=== PATIENT | female | born 1935 | race Caucasian/White ===

== ENCOUNTER 2016-05-28 19:04 | Inpatient (IN) | payer MEDICARE, OTHER ==
[~2016-05-28] VITALS: Ht 165.1 cm; Wt 51.3 kg
[~2016-05-28 19:04] MED LIST: ASPIR-LOW81 MG PO; ASPIRIN E.C. 8181 MG PO; ATENOLOL; DIAZEPAM PO; EVISTA; IMDUR 30MG30 MG/TAB PO; IMDUR120 MG PO; ISOSORBIDE; LEVAQUIN 5500 MG/TA1 PO; LEVOTHYROXINE PO; LISINOPRIL2.5 MG PO; METAMUCIL1 PDR PO; MULTIPLE VITAMI1 CAP PO; NORCO 325 MG-51 TAB PO; OMNICEF 300MG300 MG PO; PRILOSEC 20MG20 MG PO; PRINIVIL5 MG PO; PYRIDIUM 100MG100 MG PO; TENORMIN 2525 MG/TAB PO; TERAZOSIN; TIROSINT75 MCG PO; TYLENOL 325MG325 MG PO; VALIUM 10MG10 MG/TAB PO; VALIUM 5MG T5 MG/TAB PO; [UNRECOGNIZED DRUG - OTHER] PO; evista PO
[2016-05-28 19:29] LABS: BASO # 0.1 (0.0-0.2); BASO % 0.5 % (0.0-2.0); EOS % 0.4 % (0-4.0); GRAN # 6.5 (1.4-6.5); GRAN % 69.2 % (42.2-75.2); HEMOGLOBIN 12.6 g/dl (12.5-16.0); LYMPH # 1.9 (1.2-3.4); LYMPH % 20.1 % (20.0-51.0); MEAN CELL VOLUME 85 fl (80.0-100.0); MEAN CORPUSCULAR HEMOGLOBIN 30 pg (27.0-31.0); MEAN CORPUSCULAR HGB CONC 36 g/dl (33.0-37.0); MEAN PLATELET VOLUME 8.9 fl (7.4-10.4); MONO # 0.9 (0.1-0.6); MONO % 9.5 % (1.7-9.3); PLATELET COUNT 276 K/mm3 (130-400); RED BLOOD COUNT 4.14 M/mm3 (4.10-5.30); REDCELL DISTRIBUTION WIDTH-CV 12.4 % (11.5-14.5); WHITE BLOOD COUNT 9.3 K/mm3 (4.8-10.8)
[2016-05-28 19:38] LABS: HEMATOCRIT 35.1 % (37.0-47.0)
[2016-05-28 20:28] LABS: PH 8 (5-8); SQUAMOUS EPITHELIAL None Seen /hpf; URINE APPEARANCE Clear; URINE BACTERIA Rare /hpf; URINE BILIRUBIN Negative (NEGATIVE); URINE BLOOD 1+ (NEGATIVE); URINE COLOR Straw; URINE GLUCOSE 1+ (NEGATIVE); URINE KETONE Negative (NEGATIVE); URINE UROBILINOGEN Negative (NEGATIVE); URINE WBC 0-2 /hpf
[2016-05-28 20:28] LABS: ADJUSTED CALCIUM 8.8 mg/dL (8.4-10.2); ALBUMIN 4.6 gm/dL (3.5-5.0); CALCIUM 9.3 mg/dL (8.4-10.2); CREATININE, serum 0.61 mg/dL (0.52-1.25); POTASSIUM 4.3 mmol/L (3.4-5.0); TOTAL PROTEIN 8.1 gm/dL (6.4-8.2)
[2016-05-29] VITALS (552 sets, daily range): BP systolic 127–168; BP diastolic 55–88; PULSE 52–87; TEMP 97.6–98.7; O2SAT 95–100
[2016-05-29 07:56] LABS: CALCIUM 8.9 mg/dL (8.4-10.2); CREATININE, serum 0.61 mg/dL (0.52-1.25); POTASSIUM 3.7 mmol/L (3.4-5.0)
[2016-05-29] MEDS ORDERED: PRINIVIL10 MG PO (10:20)
[2016-05-29] MEDS ORDERED: CELEBREX 200MG200 MG PO (10:22)
[2016-05-29] MEDS ORDERED: SYNTHROID0.05 MG/TA PO (10:27)
[2016-05-29] MEDS ORDERED: TIROSINT75 MC1 PO (10:29)
[2016-05-29 11:45] LABS: THYROID STIMULATING HORMONE 3.27 uIU/mL (0.465-4.680)
[2016-05-30] VITALS (474 sets, daily range): BP systolic 119–150; BP diastolic 62–83; PULSE 59–66; TEMP 97.2–98.3; O2SAT 96–100
[2016-05-30 05:39] LABS: CALCIUM 8.6 mg/dL (8.4-10.2); CREATININE, serum 0.7 mg/dL (0.52-1.25); POTASSIUM 3.6 mmol/L (3.4-5.0)
[2016-05-31] VITALS (9 sets, daily range): BP systolic 131–177; BP diastolic 57–84; PULSE 58–87; TEMP 97–98
[2016-06-01 02:51] VITALS: BP 173/93; PULSE 64; TEMP 97.6
[2016-06-01 07:30] VITALS: BP 163/78; PULSE 65; TEMP 97.8
[2016-06-01 11:20] VITALS: BP 159/75; PULSE 67; TEMP 97.9
[2016-06-01 15:59] VITALS: BP 160/70; PULSE 79; TEMP 97.7
[2016-06-01 20:53] VITALS: BP 133/98; PULSE 67; TEMP 98.3
[2016-06-01 23:57] VITALS: BP 135/71; PULSE 68; TEMP 98.5
[2016-06-02] VITALS (7 sets, daily range): BP systolic 139–175; BP diastolic 58–99; PULSE 63–83; TEMP 97.3–98.5
[2016-06-02 07:32] LABS: CALCIUM 8.5 mg/dL (8.4-10.2); CREATININE, serum 0.69 mg/dL (0.52-1.25)
[2016-06-03 02:33] VITALS: BP 160/80; PULSE 70; TEMP 98.7
[2016-06-03 07:30] VITALS: BP 153/86; PULSE 77; TEMP 98.4
[2016-06-03 08:02] VITALS: BP 145/72; PULSE 64; TEMP 98.2
[2016-06-03 08:03] LABS: CALCIUM 8.8 mg/dL (8.4-10.2); CREATININE, serum 0.76 mg/dL (0.52-1.25)
[2016-06-03] MEDS ORDERED: METAMUCIL3.4 GM/DOS PO (10:28)
[2016-06-03] MEDS ORDERED: LASIX 20MG TABL20 MG PO (10:28)
[2016-06-03] MEDS ORDERED: DULCOLAX S10 MG/SUPP RC (10:29)
[2016-06-03] MEDS ORDERED: LIQUIFILM TEARS15 ML OP (10:29)
[2016-06-03 10:45] VITALS: BP 145/72; PULSE 64; TEMP 98.2
[2016-06-03 11:04] VITALS: BP 157/86; PULSE 73; TEMP 98.4
== END 2016-06-03 12:22 | DRG 641 ==
LOC: COL.ER 19:04 → ICU 21:25 → MEDICAL 21:25 → ICU 21:25 → IMCU 05-29 15:03 → MEDICAL 05-30 18:00
PROVIDERS: Emergency Medicine
PROC: 02HV33Z Insertion of Infusion Device into Superior Vena Cava, Percutaneous Approach (ICD-10-PCS; principal; 2016-05-29)
DX: E87.1 Hypo-osmolality and hyponatremia (principal); E46 Unspecified protein-calorie malnutrition; Z68.1 Body mass index [BMI] 19.9 or less, adult; I10 Essential (primary) hypertension; E03.9 Hypothyroidism, unspecified; F20.9 Schizophrenia, unspecified
CPT/HCPCS: C1751; C1894; J1644; J7030

== ENCOUNTER → 2016-08-20 | Outpatient (CLI) | payer MEDICARE, OTHER ==
[~2016-08-20] MED LIST changes: +CELEBREX 200MG200 MG PO; +DULCOLAX S10 MG/SUPP RC; +LASIX 20MG TABL20 MG PO; +LIQUIFILM TEARS15 ML OP; +METAMUCIL3.4 GM/DOS PO; +PRINIVIL10 MG PO; +SYNTHROID0.05 MG/TA PO; +TIROSINT75 MC1 PO
== END ==
LOC: MC.RAD 13:45
DX: Z12.31 Encounter for screening mammogram for malignant neoplasm of breast (principal)

== ENCOUNTER → 2017-12-06 | Outpatient (CLI) | payer MEDICARE, OTHER | LOC: MC.RAD 09:58 | DX: Z12.31 Encounter for screening mammogram for malignant neoplasm of breast (principal) ==

== ENCOUNTER 2019-01-14 20:11 | Inpatient (IN) | payer MEDICARE, OTHER ==
[~2019-01-14] VITALS: Ht 154.9 cm; Wt 51.0 kg
[2019-01-14 20:34] LABS: HEMOGLOBIN 11.9 g/dl (12.5-16.0); MEAN CELL VOLUME 82 fl (80.0-100.0); MEAN CORPUSCULAR HEMOGLOBIN 30 pg (27.0-31.0); MEAN CORPUSCULAR HGB CONC 37 g/dl (33.0-37.0); MEAN PLATELET VOLUME 9.5 fl (7.4-10.4); PLATELET COUNT 162 K/mm3 (130-400); RED BLOOD COUNT 3.99 M/mm3 (4.10-5.30); REDCELL DISTRIBUTION WIDTH-CV 15.6 % (11.5-14.5)
[2019-01-14 20:35] LABS: HEMATOCRIT 32.6 % (37.0-47.0)
[2019-01-14 20:42] LABS: ALBUMIN 3.5 gm/dL (3.5-5.0); BILIRUBIN,TOTAL 1.3 mg/dL (0.0-1.0); CALCIUM 9.2 mg/dL (8.4-10.2); CREATININE, serum 2.18 (0.52-1.25); POTASSIUM 4.2 mmol/L (3.4-5.0); TOTAL PROTEIN 7.1 gm/dL (6.4-8.2)
[2019-01-14 20:43] LABS: INR 1.2 (0.8-3.0); PROTHROMBIN TIME 13.8 SECONDS (9.7-12.8)
[2019-01-14 20:53] LABS: TROPONIN-I 0.026 ng/mL (0.000-0.035)
[2019-01-14 21:41] LABS: BAND 6 % (0-10); LYMPHOCYTE 2 % (20.0-51.0); MICROCYTOSIS 2+; NEUTROPHILS 89 % (42.0-75.2); TARGET CELLS 1+
[2019-01-14 21:44] LABS: PLATELET ESTIMATE NORMAL (NORMAL)
[2019-01-14 22:41] LABS: COLLECTION METHOD CLEAN CATCH
[2019-01-14 22:46] LABS: PH 6 (5-8); SQUAMOUS EPITHELIAL None Seen /hpf; URINE APPEARANCE Clear; URINE BACTERIA None Seen /hpf; URINE BILIRUBIN Negative (NEGATIVE); URINE BLOOD 1+ (NEGATIVE); URINE COLOR Yellow; URINE GLUCOSE Negative (NEGATIVE); URINE KETONE Negative (NEGATIVE); URINE LEUKOCYTE ESTERASE Negative (NEGATIVE); URINE NITRATE Negative (NEGATIVE); URINE PROTEIN(semi-quant) Negative (NEGATIVE); URINE RBC None Seen /hpf; URINE UROBILINOGEN Negative (NEGATIVE)
[2019-01-14] MEDS ORDERED: TENORMIN 5050 MG/TAB PO (22:58)
[2019-01-14] MEDS ORDERED: LASIX 20MG TABL20 MG PO (23:01)
[2019-01-14] MEDS ORDERED: LASIX 40MG TABL40 MG PO (23:03)
[2019-01-14] MEDS ORDERED: CELEBREX 200MG200 MG PO (23:07)
[2019-01-14] MEDS ORDERED: DORYX100 PO (23:08)
[2019-01-14] MEDS ORDERED: IMODIUM A-D2 MG PO (23:09)
[2019-01-14] MEDS ORDERED: MUCINEX 60600 MG/TA1 PO (23:10)
[2019-01-14] MEDS ORDERED: GOOD NEIGH1200 MG/15 PO (23:10)
[2019-01-14] MEDS ORDERED: MYLANTA 150 ML150 M1 (23:11)
[2019-01-14] MEDS ORDERED: NIACINAMIDE500 MG PO (23:12)
[2019-01-14] MEDS ORDERED: PRILOTC PO (23:12)
[2019-01-14] MEDS ORDERED: TYLENOL 325MG325 MG PO (23:13)
[2019-01-14] MEDS ORDERED: VALIUM 5MG T5 MG/TAB PO ×2 (23:14→23:15)
[2019-01-14] MEDS ORDERED: ZYRTEC 10MG10 MG PO (23:16)
[2019-01-14] MEDS ORDERED: VALIUM 2MG T2 MG/TAB PO (23:18)
[2019-01-14 23:43] VITALS: BP 188/71; PULSE 61; TEMP 97.5
--- NOTE | 2019-01-15 00:10 | NUR ---
Admitted to medical floor from ER , Dx;pancreatitis, Tele on, NPO, pt is alert/oriented, pleasant, slightly slurred speech abd talks quietly but able to understand, lives at assisted living in [facility]- IV fluids at 250cc/hr- Has Evans {was placed in ER} to DD with clear yellow urine- denies pain, denies N/V- bed alarm on -understands to call for assistance.
[2019-01-15] MEDS ORDERED: PRILOSEC 20MG20 MG PO (01:09)
[2019-01-15] MEDS ORDERED: VALIUM 5MG T5 MG/TAB PO (01:16)
[2019-01-15 01:55] VITALS: BP 190/73; PULSE 66
--- NOTE | 2019-01-15 02:00 | NUR ---
Dr Tapia called regarding B/P 190/73, and IV fluids at 250cc/hr-- order to decrease fluids to 75cc/hr , and give Tenormin 50mg and Lisinopril 5mg at this time- also order for GI consult to be called this morning. IV site to left wrist very positional-dc,d- new site started to right wrist 22g
[2019-01-15 07:08] VITALS: BP 199/85; PULSE 62; TEMP 97.8
--- NOTE | 2019-01-15 07:21 | NUR ---
Received report from LEFTY Cloud.
--- NOTE | 2019-01-15 09:52 | NUR ---
Pt sleeping upon entry, easily awakened, no C/O pain at this time, shift assessments complete, left Pt call light in reach, bed in lowest position.
[2019-01-15 10:02] LABS: HEMOGLOBIN 10.1 g/dl (12.5-16.0); MEAN CELL VOLUME 81 fl (80.0-100.0); MEAN CORPUSCULAR HEMOGLOBIN 30 pg (27.0-31.0); MEAN CORPUSCULAR HGB CONC 37 g/dl (33.0-37.0); MEAN PLATELET VOLUME 9.2 fl (7.4-10.4); PLATELET COUNT 240 K/mm3 (130-400); RED BLOOD COUNT 3.41 M/mm3 (4.10-5.30); REDCELL DISTRIBUTION WIDTH-CV 15.6 % (11.5-14.5)
[2019-01-15 10:05] LABS: HEMATOCRIT 27.6 % (37.0-47.0)
[2019-01-15 10:17] LABS: ALBUMIN 2.6 gm/dL (3.5-5.0); BILIRUBIN,TOTAL 1.4 mg/dL (0.0-1.0); CALCIUM 8.1 mg/dL (8.4-10.2); CREATININE, serum 1.57 (0.52-1.25); POTASSIUM 3.2 mmol/L (3.4-5.0); TOTAL PROTEIN 5.7 gm/dL (6.4-8.2)
--- NOTE | 2019-01-15 10:25 | NUR ---
Patient lives in [facility] ([place]) and plans to return to [facility] upon her recovery. Patient's (Milton Kaplan [phone]) and her son (David Kaplan [phone]) are supportive of the patient's needs. 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 Patient uses a wheelchair for mobility assistance, her primary care physician is Dr. Ezekiel Tapia, [facility] and she does not have advance directives of healthcare completed yet the patient is a DNR. No further needs at this time and social studies teacher will follow as needed.
[2019-01-15 11:19] VITALS: BP 176/80; PULSE 70; TEMP 98
[2019-01-15 15:45] VITALS: BP 156/96; PULSE 73; TEMP 98.3
--- NOTE | 2019-01-15 19:09 | NUR ---
Pt resting in room, no C/O pain during the day, VS have remained stable.
--- NOTE | 2019-01-15 19:10 | NUR ---
Report given to LEFTY Spann.
--- NOTE | 2019-01-15 19:15 | NUR ---
Shift assessment complete. Pt resting in bed, sleepy but easy to wake, a&o but c int confused/forgetful statements. Pt cooperative c cares. Pt c/o pain "8/10" to "abd a little" as well as "back and pressure sore"; pt repositioned et PRN APAP admin, will continue to monitor. Pt denies other c/o. IV patent. Tele in place. Pt denies further needs. Call light in reach, bed alarm on. Will continue to monitor.
[2019-01-15 19:26] VITALS: BP 156/75; PULSE 70; TEMP 97.6
[2019-01-16 00:17] VITALS: BP 132/64; PULSE 67; TEMP 98.8
[2019-01-16 03:49] VITALS: BP 122/51; PULSE 64; TEMP 97.7
[2019-01-16 06:13] LABS: MEAN CELL VOLUME 81 fl (80.0-100.0); MEAN CORPUSCULAR HGB CONC 37 g/dl (33.0-37.0); MEAN PLATELET VOLUME 8.9 fl (7.4-10.4); PLATELET COUNT 238 K/mm3 (130-400); RED BLOOD COUNT 2.73 M/mm3 (4.10-5.30); REDCELL DISTRIBUTION WIDTH-CV 15.7 % (11.5-14.5)
[2019-01-16 06:14] LABS: HEMATOCRIT 22.1 % (37.0-47.0); HEMOGLOBIN 8.2 g/dl (12.5-16.0); MEAN CORPUSCULAR HEMOGLOBIN 30 pg (27.0-31.0)
[2019-01-16 06:27] LABS: ANISOCYTOSIS 1+; EOSINOPHIL 1 % (0-4); LYMPHOCYTE 4 % (20.0-51.0); MYELOCYTE 1 % (0-0); NEUTROPHILS 89 % (42.0-75.2); NUCLEATED RED BLOOD CELL 6 (0-6); PLATELET ESTIMATE NORMAL (NORMAL)
[2019-01-16 07:06] VITALS: BP 131/54; PULSE 61; TEMP 97.6
[2019-01-16 07:14] LABS: AMYLASE 162 U/L (30-110); LIPASE 1158 U/L (23-300)
--- NOTE | 2019-01-16 11:22 | NUR ---
Assessment completed, alert/oriented, vital signs stable, reports signficant back pain/ treating with [place] and heating pad at this time, GI has been by and has not made any new changes or rocommendations, she has had some breafast and tolerated well/ denies any increased abd pain or discomfort, biggest concerns for her is her back pain, heart RRR, lungs CTA, has stg.II pressure ulcer to coccyx/ covered with dressing, she is able to make small positon changes on her own, denies other needs at this time, SNF referrals made for discharge planning, will discuss plan of care with when he makes his rounds
[2019-01-16 12:15] VITALS: BP 92/45; PULSE 62; TEMP 97.7
--- NOTE | 2019-01-16 13:42 | NUR ---
ABBY contacted and faxed updates to Barb at [facility]. ABBY requested for PT/OT to be ordered from the patient's attending, Dr. Tapia. ABBY to continue to follow.
[2019-01-16 16:41] VITALS: BP 116/49; PULSE 64; TEMP 97.5
[2019-01-16 19:49] VITALS: BP 105/49; PULSE 66; TEMP 97.2
--- NOTE | 2019-01-16 20:15 | NUR ---
Shift assessment complete. Pt resting in bed, awake, a&o c occasional forgetfull/confused statements, cooperative c cares. Pt c/o continued pain to back et "bed sore"; PRN pain medicare interviewer c HS meds per pt req, K-pad in place et pt repositioned. Pt denies any other c/o. IV patent. Tele in place. Evans to DD. Pt denies further needs. Call light in reach, bed alarm on. Will continue to monitor.
[2019-01-17 04:16] VITALS: BP 111/50; PULSE 63; TEMP 98.3
[2019-01-17 06:32] LABS: MEAN CELL VOLUME 81 fl (80.0-100.0); MEAN CORPUSCULAR HGB CONC 36 g/dl (33.0-37.0); MEAN PLATELET VOLUME 9.4 fl (7.4-10.4); PLATELET COUNT 226 K/mm3 (130-400); RED BLOOD COUNT 2.78 M/mm3 (4.10-5.30); REDCELL DISTRIBUTION WIDTH-CV 15.9 % (11.5-14.5)
[2019-01-17 06:52] LABS: AMYLASE 135 U/L (30-110); LIPASE 1042 U/L (23-300)
[2019-01-17 06:55] LABS: IRON,SERUM 43 ug/dL (35-150)
[2019-01-17 07:05] LABS: TOTAL IRON BINDING CAPACITY 143 ug/dL (265-497)
[2019-01-17 07:06] LABS: HEMATOCRIT 22.6 % (37.0-47.0); HEMOGLOBIN 8.2 g/dl (12.5-16.0); MEAN CORPUSCULAR HEMOGLOBIN 29 pg (27.0-31.0)
[2019-01-17 07:56] VITALS: BP 144/72; PULSE 61; TEMP 98
--- NOTE | 2019-01-17 08:00 | NUR ---
Patient resting in the bed and laying on left side, pillows under right side. Alert to name and partially confused. VSS. IV CDI, fluids infusing. Nurse assisted patient with ordering food and sitting up food tray. No further needs expressed from patient. Call light within reach. Bed alarm on
[2019-01-17 09:56] LABS: CREATININE, serum 1.3 (0.52-1.25)
[2019-01-17 11:30] VITALS: BP 121/50; PULSE 68; TEMP 98.4
--- NOTE | 2019-01-17 15:07 | NUR ---
PT/OT are recommending back to [facility] with increased level of assist vs SNF. ABBY contacted the patient's son, David (ph#[phone]), to review recommendation. David reports that he is supportive of the patient going back to [facility] for [place], but it all depends on what the patient wants to do. ABBY then met with the patient to review recommendation. The patient reports that she would be agreeable to rehab. ABBY presented and explained the Patient Choice Form to the patient. The patient preferred [facility]. Patient Choice Form signed by the patient and she was provided a copy. ABBY contacted and faxed updates to Barb at [facility].
[2019-01-17 16:02] VITALS: BP 126/52; PULSE 65; TEMP 98.3
--- NOTE | 2019-01-17 18:21 | NUR ---
Pt moved to [facility] d/t cory warning.
--- NOTE | 2019-01-17 18:27 | NUR ---
Pt was incontinent of soft BM large amount this afternoon. Linens and gown changed. Pericare and catheter care provided. Pt hands cleansed. Pt has call light in reach and denies needs at this time.
--- NOTE | 2019-01-17 19:12 | NUR ---
Pt report given to Maria Ines OLEA
[2019-01-17 19:14] VITALS: BP 121/57; PULSE 79; TEMP 98.5
--- NOTE | 2019-01-17 19:35 | NUR ---
Shift assessment complete. Pt resting in bed, awake, a&o c int forgetfull/confused statements, cooperative c cares. Pt c/o continued pain to back et "bed sore" rated "7/10"; pt repositioned, K-pad applied et PRN pain medical clerk per pt req. Pt also c/o diarrhea, pt incont of large loose BM at this time, linnens changed et papo-care/ lockhart care provided. Pt denies any other c/o at this time. INT patent. Tele in place. Lockhart to DD. Pt denies further needs. Call light in reach, bed alarm on. Will continue to monitor.
[2019-01-17 23:16] VITALS: BP 117/56; PULSE 65; TEMP 98.7
[2019-01-18 03:47] VITALS: BP 103/42; PULSE 66; TEMP 98.9
[2019-01-18 06:21] LABS: HEMATOCRIT 22.9 % (37.0-47.0); HEMOGLOBIN 8.4 g/dl (12.5-16.0)
[2019-01-18 06:31] LABS: CALCIUM 7.6 mg/dL (8.4-10.2)
[2019-01-18 06:37] LABS: POTASSIUM 1.9 mmol/L (3.4-5.0)
--- NOTE | 2019-01-18 08:15 | NUR ---
Initial; pt is laying in bed during shift change. Assessment complete pt not complaining of any pain, just slight discomfort from her back. Vitals WNL. Potassium protocol started for low potassium. call light and phone within reach. No other concerns at this time.
[2019-01-18 08:23] VITALS: BP 135/60; PULSE 74; TEMP 98.4
[2019-01-18 11:41] VITALS: BP 104/51; PULSE 73; TEMP 98.5
--- NOTE | 2019-01-18 14:15 | NUR ---
ABBY collaborated with the patient's attending, Dr. Tapia. Dr. Tapia states that the patient may tentatively be able to discharge tomorrow, 01/19, if her potassium levels are better. ABBY contacted and faxed updates to Barb at [facility]. ABBY to continue to follow.
[2019-01-18 16:35] VITALS: BP 119/55; PULSE 85; TEMP 98.6
[2019-01-18 19:26] VITALS: BP 114/53; PULSE 86; TEMP 98.6
--- NOTE | 2019-01-18 20:45 | NUR ---
Resting in bed. Assessment complete. Lungs clear. Heart sounds normal. Bowels active. No edema noted. Evans to dependent drainage. Evans/pericare provided. Coccyx covered with mepilex dressing reported stage 2 pressure ulcer. Left buttock scaring present. Patient repositioned Q2H. Denies pain at this time. Denies needs. Call light in reach.
--- NOTE | 2019-01-18 22:30 | NUR ---
Resting in bed. Denies needs. Call light in reach.
[2019-01-18 23:21] VITALS: BP 134/70; PULSE 77; TEMP 98.4
--- NOTE | 2019-01-19 | NUR ---
Resting in bed. Denies needs at this time. Call light in reach.
--- NOTE | 2019-01-19 02:15 | NUR ---
Patient potassium 3.6. Replacing per protocol. Patient also incontinent of stool at this time. Cares provided. Repositioned. Denies needs. Call light in reach.
[2019-01-19 04:16] VITALS: BP 123/56; PULSE 77; TEMP 98.6
--- NOTE | 2019-01-19 04:40 | NUR ---
Resting in bed. Denies needs. Call light in reach.
[2019-01-19 06:15] LABS: MEAN CELL VOLUME 83 fl (80.0-100.0); MEAN CORPUSCULAR HGB CONC 35 g/dl (33.0-37.0); MEAN PLATELET VOLUME 9.4 fl (7.4-10.4); PLATELET COUNT 251 K/mm3 (130-400); RED BLOOD COUNT 2.63 M/mm3 (4.10-5.30); REDCELL DISTRIBUTION WIDTH-CV 16.1 % (11.5-14.5)
[2019-01-19 06:23] LABS: HEMATOCRIT 21.8 % (37.0-47.0); HEMOGLOBIN 7.7 g/dl (12.5-16.0); MEAN CORPUSCULAR HEMOGLOBIN 29 pg (27.0-31.0)
[2019-01-19 06:27] LABS: CALCIUM 7.4 mg/dL (8.4-10.2); CREATININE, serum 0.89 (0.52-1.25); POTASSIUM 4.4 mmol/L (3.4-5.0)
--- NOTE | 2019-01-19 06:30 | NUR ---
Patient potassium replaced throughout night, increased to 3.6, replaced again per protocol. Incontinent of bowel throughout night. Pericare provided each time with catheter cares complete. Repositioned Q2H and as requested. Resting in bed this AM. Denies needs. Call light in reach.
--- NOTE | 2019-01-19 07:17 | NUR ---
Report given to LEFTY Aleman
[2019-01-19 07:22] VITALS: BP 107/67; PULSE 84; TEMP 98.8
[2019-01-19 07:27] LABS: EOSINOPHIL 5 % (0-4); LYMPHOCYTE 17 % (20.0-51.0); NEUTROPHILS 73 % (42.0-75.2)
[2019-01-19 07:28] LABS: TARGET CELLS 1+
[2019-01-19 07:29] LABS: ANISOCYTOSIS 1+; HYPOCHROMIA 2+; PLATELET ESTIMATE NORMAL (NORMAL)
[2019-01-19 13:09] VITALS: BP 121/64; PULSE 71; TEMP 97.6
[2019-01-19] MEDS ORDERED: VITAMIN D 400400 IU PO (13:14)
[2019-01-19] MEDS ORDERED: KLOR-CON SPRIN10 MEQ PO (13:16)
--- NOTE | 2019-01-19 13:43 | NUR ---
ABBY informed of pending DC. SW to fax [facility] order, [facility]. Informed son and [facility] will infor spouse. No additonal ID.
--- NOTE | 2019-01-19 14:59 | NUR ---
SW presented and explained the IM form to the patient. The patient verbalized understanding, signed, and she was provided a copy. No additional needs at this time.
--- NOTE | 2019-01-19 16:45 | NUR ---
Patient discharged to [facility], PICC and lockhart removed. Belongings sent with patient.
== END 2019-01-19 14:45 | DRG 439 ==
LOC: COL.ER 20:11 → MEDICAL 21:32
PROVIDERS: Emergency Medicine; Internal Medicine Gastroenterology; ADMIT Emergency Medicine
PROC: 02HV33Z Insertion of Infusion Device into Superior Vena Cava, Percutaneous Approach (ICD-10-PCS; principal; 2019-01-18)
DX: K85.90 Acute pancreatitis without necrosis or infection, unspecified (principal); E87.1 Hypo-osmolality and hyponatremia; N17.9 Acute kidney failure, unspecified; I12.9 Hypertensive chronic kidney disease with stage 1 through stage 4 chronic kidney disease, or unspecified chronic kidney disease; N18.9 Chronic kidney disease, unspecified; E03.9 Hypothyroidism, unspecified; Z66 Do not resuscitate; F20.9 Schizophrenia, unspecified; Z87.440 Personal history of urinary (tract) infections; F41.9 Anxiety disorder, unspecified; D63.8 Anemia in other chronic diseases classified elsewhere
CPT/HCPCS: C1751; J2405; J2543; J3010; J3480; J7030; Q9967

== ENCOUNTER 2019-02-11 20:38 | Inpatient (IN) | payer MEDICARE, OTHER ==
[~2019-02-11] VITALS: Wt 48.6 kg
[~2019-02-11 20:38] MED LIST changes: +DORYX100 PO; +GOOD NEIGH1200 MG/15 PO; +IMODIUM A-D2 MG PO; +KLOR-CON SPRIN10 MEQ PO; +LASIX 40MG TABL40 MG PO; +MUCINEX 60600 MG/TA1 PO; +MYLANTA 150 ML150 M1; +NIACINAMIDE500 MG PO; +PRILOTC PO; +TENORMIN 5050 MG/TAB PO; +VALIUM 2MG T2 MG/TAB PO; +VITAMIN D 400400 IU PO; +ZYRTEC 10MG10 MG PO
[2019-02-11 21:36] LABS: COLLECTION METHOD CATHETER
[2019-02-11 21:37] LABS: HEMOGLOBIN 10.1 g/dl (12.5-16.0); MEAN CELL VOLUME 100 fl (80.0-100.0); MEAN CORPUSCULAR HEMOGLOBIN 31 pg (27.0-31.0); MEAN CORPUSCULAR HGB CONC 31 g/dl (33.0-37.0); MEAN PLATELET VOLUME 9.5 fl (7.4-10.4); PLATELET COUNT 132 K/mm3 (130-400); RED BLOOD COUNT 3.24 M/mm3 (4.10-5.30)
[2019-02-11 21:44] LABS: HEMATOCRIT 32.4 % (37.0-47.0)
[2019-02-11 21:47] LABS: PROTHROMBIN TIME 11.2 SECONDS (9.7-12.8)
[2019-02-11 21:51] LABS: BUDDING YEAST Present /hpf; PH 5 (5-8); SQUAMOUS EPITHELIAL None Seen /hpf; URINE APPEARANCE Clear; URINE BACTERIA Rare /hpf; URINE BILIRUBIN Negative (NEGATIVE); URINE BLOOD 1+ (NEGATIVE); URINE COLOR Yellow; URINE GLUCOSE Negative (NEGATIVE); URINE KETONE Trace (NEGATIVE); URINE LEUKOCYTE ESTERASE Negative (NEGATIVE); URINE NITRATE Negative (NEGATIVE); URINE PROTEIN(semi-quant) 1+ (NEGATIVE); URINE RBC 0-2 /hpf; URINE UROBILINOGEN Negative (NEGATIVE)
[2019-02-11 22:06] LABS: BILIRUBIN,TOTAL 0.4 mg/dL (0.0-1.0); C-REACTIVE PROTEIN 0.7 mg/dL (0.0-0.9); CALCIUM 10.4 mg/dL (8.4-10.2); CREATININE, serum 3.54 (0.52-1.25); POTASSIUM 5.5 mmol/L (3.4-5.0); TOTAL PROTEIN 7.8 gm/dL (6.4-8.2)
[2019-02-11 22:08] LABS: BAND 1 % (0-10); EOSINOPHIL 6 % (0-4); LYMPHOCYTE 33 % (20.0-51.0); NEUTROPHILS 56 % (42.0-75.2)
[2019-02-11 22:09] LABS: BURR CELLS 3+; PLATELET ESTIMATE NORMAL (NORMAL)
[2019-02-11 22:10] LABS: ANISOCYTOSIS 3+; HYPOCHROMIA 2+; MICROCYTOSIS 3+; OVALOCYTES 1+; TARGET CELLS 1+
[2019-02-11 22:11] LABS: SPHEROCYTE 1+
[2019-02-11 22:15] LABS: TROPONIN-I 0.037 ng/mL (0.000-0.035)
[2019-02-11 22:56] LABS: ARTERIAL BLD GAS O2 SATURATION 97.1 % (92-100); ARTERIAL BLD GAS TCO2 CT 11.3; ARTERIAL BLOOD GAS BASE EXCESS -15.8 (-2-2); ARTERIAL BLOOD GAS HCO3 10.5 meq/L (22-26); ARTERIAL BLOOD GAS PCO2 26.6 mmHg (35-45); ARTERIAL BLOOD GAS pH 7.21 (7.35-7.45)
[2019-02-12] VITALS (1251 sets, daily range): BP systolic 101–188; BP diastolic 63–100; PULSE 65–72; TEMP 97–97.8; O2SAT 80–100
[2019-02-12] MEDS ORDERED: SYNTHROID0.075 MG/T PO (02:12)
[2019-02-12] MEDS ORDERED: FERROUSAL325 MG PO (02:14)
[2019-02-12] MEDS ORDERED: MACROBID 1100 MG/CAP PO (02:16)
[2019-02-12] MEDS ORDERED: ZINC OXIDE 28GM TP (02:18)
[2019-02-12] MEDS ORDERED: TYLENOL SU650 MG/SUP RC (02:19)
[2019-02-12] MEDS ORDERED: DESITIN MAXIMUM S40% TOP (02:20)
[2019-02-12] MEDS ORDERED: DULCOLAX S10 MG/SUPP RC (02:21)
[2019-02-12] MEDS ORDERED: NORCO 325 MG-51 TAB PO (02:23)
[2019-02-12] MEDS ORDERED: LIDEX CR 15GM TP (05:11)
[2019-02-12 05:57] LABS: ARTERIAL BLD GAS O2 SATURATION 98.2 % (92-100); ARTERIAL BLD GAS TCO2 CT 13.6; ARTERIAL BLOOD GAS BASE EXCESS -11.5 (-2-2); ARTERIAL BLOOD GAS HCO3 12.9 meq/L (22-26); ARTERIAL BLOOD GAS PCO2 24.5 mmHg (35-45); ARTERIAL BLOOD GAS PO2 111.7 mmHg (80-100); ARTERIAL BLOOD GAS pH 7.34 (7.35-7.45)
[2019-02-12 06:13] LABS: ALBUMIN 2.9 gm/dL (3.5-5.0); BILIRUBIN,TOTAL 0.4 mg/dL (0.0-1.0); CREATININE, serum 2.46 (0.52-1.25); POTASSIUM 4.3 mmol/L (3.4-5.0); TOTAL PROTEIN 5.7 gm/dL (6.4-8.2)
[2019-02-12 06:27] LABS: MEAN CELL VOLUME 97 fl (80.0-100.0); MEAN CORPUSCULAR HGB CONC 33 g/dl (33.0-37.0); MEAN PLATELET VOLUME 9.2 fl (7.4-10.4); PLATELET COUNT 97 K/mm3 (130-400); RED BLOOD COUNT 2.88 M/mm3 (4.10-5.30); REDCELL DISTRIBUTION WIDTH-CV 27.7 % (11.5-14.5)
[2019-02-12 07:00] LABS: HEMOGLOBIN 9.1 g/dl (12.5-16.0); MEAN CORPUSCULAR HEMOGLOBIN 32 pg (27.0-31.0)
[2019-02-12 07:22] LABS: ANISOCYTOSIS 3+; BAND 14 % (0-10); EOSINOPHIL 5 % (0-4); LYMPHOCYTE 28 % (20.0-51.0); NEUTROPHILS 53 % (42.0-75.2); POIKILOCYTOSIS 2+
[2019-02-12 07:23] LABS: SCHISTOCYTES 1+; TARGET CELLS 1+
[2019-02-12 07:26] LABS: PLATELET ESTIMATE DECREASED (NORMAL)
[2019-02-12 11:49] LABS: C-REACTIVE PROTEIN 0.6 mg/dL (0.0-0.9)
[2019-02-12 12:01] LABS: MEAN CELL VOLUME 98 fl (80.0-100.0); MEAN CORPUSCULAR HGB CONC 32 g/dl (33.0-37.0); PLATELET COUNT 95 K/mm3 (130-400); REDCELL DISTRIBUTION WIDTH-CV 27.9 % (11.5-14.5)
[2019-02-12 12:05] LABS: HEMATOCRIT 25.4 % (37.0-47.0); HEMOGLOBIN 8.1 g/dl (12.5-16.0); MEAN CORPUSCULAR HEMOGLOBIN 31 pg (27.0-31.0)
[2019-02-12 12:23] LABS: BAND 23 % (0-10); LYMPHOCYTE 30 % (20.0-51.0); NEUTROPHILS 41 % (42.0-75.2); PLATELET ESTIMATE NORMAL (NORMAL)
[2019-02-12 12:24] LABS: ANISOCYTOSIS 3+
[2019-02-12 13:47] LABS: COLLECTION METHOD CATHETER
[2019-02-12 14:19] LABS: BUDDING YEAST Present /hpf; PH 6 (5-8); SQUAMOUS EPITHELIAL 0-2 /hpf; URINE APPEARANCE Clear; URINE BACTERIA None Seen /hpf; URINE BILIRUBIN Negative (NEGATIVE); URINE BLOOD 1+ (NEGATIVE); URINE COLOR Yellow; URINE GLUCOSE 1+ (NEGATIVE); URINE KETONE Trace (NEGATIVE); URINE LEUKOCYTE ESTERASE Negative (NEGATIVE); URINE NITRATE Negative (NEGATIVE); URINE PROTEIN(semi-quant) 1+ (NEGATIVE); URINE UROBILINOGEN Negative (NEGATIVE)
[2019-02-12 17:21] LABS: CALCIUM 9.1 mg/dL (8.4-10.2); CREATININE, serum 2.19 (0.52-1.25); POTASSIUM 4.4 mmol/L (3.4-5.0)
[2019-02-13] VITALS (1167 sets, daily range): BP systolic 90–164; BP diastolic 47–91; PULSE 61–75; TEMP 96–97.5; O2SAT 68–100
[2019-02-13 05:13] LABS: HEMATOCRIT 24.1 % (37.0-47.0); HEMOGLOBIN 7.9 g/dl (12.5-16.0); MEAN CELL VOLUME 96 fl (80.0-100.0); MEAN CORPUSCULAR HEMOGLOBIN 31 pg (27.0-31.0); MEAN CORPUSCULAR HGB CONC 33 g/dl (33.0-37.0); MEAN PLATELET VOLUME 9.5 fl (7.4-10.4); PLATELET COUNT 74 K/mm3 (130-400); RED BLOOD COUNT 2.52 M/mm3 (4.10-5.30); REDCELL DISTRIBUTION WIDTH-CV 27.2 % (11.5-14.5)
[2019-02-13 05:23] LABS: ALBUMIN 2.8 gm/dL (3.5-5.0); BILIRUBIN,TOTAL 0.3 mg/dL (0.0-1.0); CALCIUM 8.2 mg/dL (8.4-10.2); CREATININE, serum 1.63 (0.52-1.25); POTASSIUM 3.6 mmol/L (3.4-5.0); TOTAL PROTEIN 5.6 gm/dL (6.4-8.2)
[2019-02-13 05:33] LABS: BAND 23 % (0-10); LYMPHOCYTE 24 % (20.0-51.0); METAMYELOCYTE 2 % (0-0); NEUTROPHILS 50 % (42.0-75.2); PLATELET ESTIMATE DECREASED (NORMAL)
[2019-02-13 05:34] LABS: ANISOCYTOSIS 3+; BURR CELLS 1+; OVALOCYTES 1+; TARGET CELLS 1+
[2019-02-14] VITALS (556 sets, daily range): BP systolic 106–158; BP diastolic 61–90; PULSE 55–72; TEMP 96.1–98; O2SAT 97–100
[2019-02-14 07:29] LABS: MEAN CELL VOLUME 95 fl (80.0-100.0); MEAN CORPUSCULAR HGB CONC 32 g/dl (33.0-37.0); MEAN PLATELET VOLUME 9.9 fl (7.4-10.4); PLATELET COUNT 75 K/mm3 (130-400); RED BLOOD COUNT 2.35 M/mm3 (4.10-5.30); REDCELL DISTRIBUTION WIDTH-CV 26.5 % (11.5-14.5)
[2019-02-14 07:39] LABS: HEMATOCRIT 22.3 % (37.0-47.0); HEMOGLOBIN 7.2 g/dl (12.5-16.0); MEAN CORPUSCULAR HEMOGLOBIN 31 pg (27.0-31.0)
[2019-02-14 07:43] LABS: ALBUMIN 2.6 gm/dL (3.5-5.0); BILIRUBIN,TOTAL 0.3 mg/dL (0.0-1.0); CALCIUM 7.8 mg/dL (8.4-10.2); CREATININE, serum 1.18 (0.52-1.25); TOTAL PROTEIN 5.3 gm/dL (6.4-8.2)
[2019-02-14 07:56] LABS: POTASSIUM 2.8 mmol/L (3.4-5.0)
[2019-02-14 08:24] LABS: BAND 14 % (0-10); LYMPHOCYTE 6 % (20.0-51.0); NEUTROPHILS 79 % (42.0-75.2); NUCLEATED RED BLOOD CELL 1 (0-6)
[2019-02-14 08:26] LABS: ANISOCYTOSIS 3+; HYPOCHROMIA 2+; PLATELET ESTIMATE DECREASED (NORMAL); POIKILOCYTOSIS 2+; TARGET CELLS 1+
[2019-02-14 08:30] LABS: MAGNESIUM 1.2 mg/dL (1.6-2.3); PHOSPHOROUS 2.8 mg/dL (2.5-4.5)
[2019-02-14 13:03] LABS: HEMATOCRIT 21.3 % (37.0-47.0); HEMOGLOBIN 6.9 g/dl (12.5-16.0)
[2019-02-14 21:29] LABS: HEMATOCRIT 27.6 % (37.0-47.0); HEMOGLOBIN 9.2 g/dl (12.5-16.0)
[2019-02-15 03:44] VITALS: BP 155/92; PULSE 61
[2019-02-15 06:33] LABS: MEAN CELL VOLUME 93 fl (80.0-100.0); MEAN CORPUSCULAR HGB CONC 34 g/dl (33.0-37.0); MEAN PLATELET VOLUME 9.6 fl (7.4-10.4); PLATELET COUNT 66 K/mm3 (130-400); RED BLOOD COUNT 2.84 M/mm3 (4.10-5.30); REDCELL DISTRIBUTION WIDTH-CV 23.9 % (11.5-14.5)
[2019-02-15 07:01] LABS: HEMATOCRIT 26.3 % (37.0-47.0); HEMOGLOBIN 8.8 g/dl (12.5-16.0); MEAN CORPUSCULAR HEMOGLOBIN 31 pg (27.0-31.0)
[2019-02-15 07:12] LABS: ALBUMIN 2.7 gm/dL (3.5-5.0); BILIRUBIN,TOTAL 0.4 mg/dL (0.0-1.0); CALCIUM 7.8 mg/dL (8.4-10.2); CREATININE, serum 0.88 (0.52-1.25); POTASSIUM 4.1 mmol/L (3.4-5.0); TOTAL PROTEIN 5.4 gm/dL (6.4-8.2)
[2019-02-15 07:30] LABS: ANISOCYTOSIS 3+; BAND 14 % (0-10); HYPOCHROMIA 1+; LYMPHOCYTE 6 % (20.0-51.0); METAMYELOCYTE 2 % (0-0); NEUTROPHILS 76 % (42.0-75.2); PLATELET ESTIMATE DECREASED (NORMAL); POLYCHROMASIA 2+; SCHISTOCYTES 2+
[2019-02-15 08:22] VITALS: BP 148/77; PULSE 63; TEMP 97.4
[2019-02-15 12:00] VITALS: BP 173/86; PULSE 66; TEMP 97.2
[2019-02-15 14:48] LABS: HEMATOCRIT 29.1 % (37.0-47.0); HEMOGLOBIN 9.7 g/dl (12.5-16.0)
[2019-02-15 16:59] VITALS: BP 155/91; PULSE 67; TEMP 97.5
[2019-02-15 20:21] VITALS: BP 158/72; PULSE 72; TEMP 97.5
[2019-02-15 23:07] VITALS: BP 168/87; PULSE 71; TEMP 97.5
[2019-02-16 03:54] VITALS: BP 153/75; PULSE 64; TEMP 97.8
[2019-02-16 06:43] LABS: MEAN CELL VOLUME 93 fl (80.0-100.0); MEAN CORPUSCULAR HGB CONC 33 g/dl (33.0-37.0); MEAN PLATELET VOLUME 10.3 fl (7.4-10.4); PLATELET COUNT 75 K/mm3 (130-400); RED BLOOD COUNT 2.66 M/mm3 (4.10-5.30); REDCELL DISTRIBUTION WIDTH-CV 24.2 % (11.5-14.5)
[2019-02-16 06:51] LABS: HEMATOCRIT 24.7 % (37.0-47.0); HEMOGLOBIN 8.2 g/dl (12.5-16.0); MEAN CORPUSCULAR HEMOGLOBIN 31 pg (27.0-31.0)
[2019-02-16 07:03] LABS: CALCIUM 7.9 mg/dL (8.4-10.2); CREATININE, serum 0.87 (0.52-1.25); POTASSIUM 3.4 mmol/L (3.4-5.0)
[2019-02-16 07:55] VITALS: BP 164/80; PULSE 68; TEMP 97.8
[2019-02-16 07:55] LABS: BAND 4 % (0-10); LYMPHOCYTE 6 % (20.0-51.0); METAMYELOCYTE 1 % (0-0); MYELOCYTE 1 % (0-0); NEUTROPHILS 83 % (42.0-75.2); PLATELET ESTIMATE DECREASED (NORMAL)
[2019-02-16 07:56] LABS: BURR CELLS 2+; SCHISTOCYTES 2+
[2019-02-16] MEDS ORDERED: PRINIVIL10 MG PO (10:48)
[2019-02-16 12:20] VITALS: BP 136/67; PULSE 68
[2019-02-16 14:52] VITALS: BP 136/67; PULSE 68; TEMP 97.8
== END 2019-02-16 15:55 | DRG 682 ==
LOC: COL.ER 20:38 → ICU 02-12 00:45 → MEDICAL 02-14 13:53
PROVIDERS: Emergency Medicine; Internal Medicine Pulmonary Disease; Nurse Practitioner Family; Physician Assistant; Student in an Organized Health Care Education/Training Program; ADMIT Internal Medicine
PROC: 02PYX3Z Removal of Infusion Device from Great Vessel, External Approach (ICD-10-PCS; principal; 2019-02-12)
PROC: 02HV33Z Insertion of Infusion Device into Superior Vena Cava, Percutaneous Approach (ICD-10-PCS; 2019-02-12)
PROC: 02HV33Z Insertion of Infusion Device into Superior Vena Cava, Percutaneous Approach (ICD-10-PCS; 2019-02-14)
DX: N17.9 Acute kidney failure, unspecified (principal); K85.90 Acute pancreatitis without necrosis or infection, unspecified; N39.0 Urinary tract infection, site not specified; E87.2 Acidosis; E87.1 Hypo-osmolality and hyponatremia; E87.0 Hyperosmolality and hypernatremia; D61.818 Other pancytopenia; I24.8 Other forms of acute ischemic heart disease; F05 Delirium due to known physiological condition; F20.9 Schizophrenia, unspecified; E03.9 Hypothyroidism, unspecified; K44.9 Diaphragmatic hernia without obstruction or gangrene; Z66 Do not resuscitate; K21.9 Gastro-esophageal reflux disease without esophagitis; E86.0 Dehydration; N18.9 Chronic kidney disease, unspecified; I12.9 Hypertensive chronic kidney disease with stage 1 through stage 4 chronic kidney disease, or unspecified chronic kidney disease; Z96.0 Presence of urogenital implants; D63.1 Anemia in chronic kidney disease; H91.90 Unspecified hearing loss, unspecified ear; I08.1 Rheumatic disorders of both mitral and tricuspid valves; E87.5 Hyperkalemia; E83.52 Hypercalcemia; E87.8 Other disorders of electrolyte and fluid balance, not elsewhere classified; M85.80 Other specified disorders of bone density and structure, unspecified site; K22.70 Barrett's esophagus without dysplasia; D50.0 Iron deficiency anemia secondary to blood loss (chronic); F03.90 Unspecified dementia, unspecified severity, without behavioral disturbance, psychotic disturbance, mood disturbance, and anxiety; T42.4X5A Adverse effect of benzodiazepines, initial encounter; L89.90 Pressure ulcer of unspecified site, unspecified stage; Z90.710 Acquired absence of both cervix and uterus; Z23 Encounter for immunization; Z87.440 Personal history of urinary (tract) infections; Z91.048 Other nonmedicinal substance allergy status; E87.6 Hypokalemia
CPT/HCPCS: 99223-AI; 99232-AI; 99233-AI; 99239; A4216; C1751; C1892; J0360; J0696; J1644; J1720; J3475; J3480; J7030; J7120; P9016

== ENCOUNTER → 2023-03-19 | Outpatient (REF) | payer MEDICARE, OTHER ==
[~2023-03-19] MED LIST changes: +CLARITIN 1010 MG/TAB PO; +DESITIN MAXIMUM S40% TOP; +FERROUSAL325 MG PO; +FLONASE NASAL S16 GM NS; +IMODIUM 2MG CAPS2 MG PO; +LIDEX CR 15GM TP; +LIQUIFILM TEARS15 ML OU; +MACROBID 1100 MG/CAP PO; +MASON NATURAL2000 IU PO; +MELATONIN5 M1 PO; +MILK OF MA400 MG/52 PO; +MIRALAX119G PO; -MUCINEX 60600 MG/TA1 PO; +MUCINEX DM 30 M1 TE1 PO; -MYLANTA 150 ML150 M1; +PRINIVIL40 MG PO; +REFRESH CELLUVI1 SOL OP; +SYNTHROID0.075 MG/T PO; +TESSALON PERLE200 MG PO; +TYLENOL SU650 MG/SUP RC; +VANTIN100 MG PO; +ZINC OXIDE 28GM TP
[2023-03-19 11:15] LABS: MEAN CELL VOLUME 91 fl (80.0-100.0); MEAN CORPUSCULAR HGB CONC 32 g/dl (33.0-37.0); PLATELET COUNT 470 K/mm3 (130-400); RED BLOOD COUNT 3.27 M/mm3 (4.10-5.30); REDCELL DISTRIBUTION WIDTH-CV 15.1 % (11.5-14.5)
[2023-03-19 11:17] LABS: HEMATOCRIT 29.7 % (37.0-47.0); HEMOGLOBIN 9.6 g/dl (12.5-16.0); MEAN CORPUSCULAR HEMOGLOBIN 29 pg (27-31)
[2023-03-19 11:33] LABS: ALBUMIN 2.9 gm/dL (3.4-4.8); BILIRUBIN,TOTAL 0.4 mg/dL (0.2-1.2); CALCIUM 8.9 mg/dL (8.4-10.2); CREATININE, serum 1.64 mg/dL (0.57-1.11); POTASSIUM 4.6 mmol/L (3.5-4.5)
[2023-03-19 11:42] LABS: TROPONIN-I 0.159 ng/mL (0.00-0.033)
[2023-03-19 11:45] LABS: ANISOCYTOSIS 1+; BAND 15 % (0-10); HYPOCHROMIA 1+; LYMPHOCYTE 5 % (20.0-51.0); NEUTROPHILS 74 % (42.0-75.2); NUCLEATED RED BLOOD CELL 1 (0-6); PLATELET ESTIMATE INCREASED (NORMAL); TEAR DROP CELLS 1+
== END ==
LOC: ZCOL.LAB 11:05
PROVIDERS: Internal Medicine
DX: R07.9 Chest pain, unspecified (principal)